=== PATIENT | female | born 2005 | race Caucasian/White ===

== ENCOUNTER 2024-02-01 16:41 | Emergency (ER) | payer OTHER ==
[~2024-02-01] VITALS: Ht 162.6 cm; Wt 45.5 kg
[~2024-02-01 16:41] MED LIST: AMOXICILLIN 8751 TAB PO; PEN-VEE K500 MG PO
[2024-02-01 16:53] VITALS: TEMP 98.5
[2024-02-01] MEDS ORDERED: FLEXERIL 1010 MG/TAB PO (18:04)
[2024-02-01] MEDS ORDERED: Home Cyclobenzaprine 10 MG #2 TABS/PACK PO ONE (18:15)
[2024-02-01 18:21] VITALS: BP 123/73; PULSE 72
== END 2024-02-01 18:23 | disposition home or self-care (01) ==
LOC: COL.ER 16:41
DX: M54.2 Cervicalgia (principal)